=== PATIENT | female | born 1940 | race Caucasian/White ===

== ENCOUNTER 2017-03-22 13:35 | Emergency (ER) | payer MEDICARE, OTHER ==
[2017-03-22 12:51] LABS: BASOPHILS 0.3 %; BASOPHILS ABSOLUTE 0.02 10/3/uL (0.0-0.16); EOSINOPHILS 1.9 %; EOSINOPHILS ABSOLUTE 0.11 10/3/uL (0.0-0.53); HEMATOCRIT 34.7 % (36.0-48.0); IMMATURE GRANULOCYTES 0.2 %; IMMATURE GRANULOCYTES ABSOLUTE 0.01 10/3/uL (0.0-0.11); LYMPHOCYTES ABSOLUTE 1.42 10/3/uL (0.67-4.30); MANUAL DIFF NO %; MEAN CORPUS HGB CONC 34.6 g/dL (32.0-36.0); MEAN CORPUSCULAR HEMOGLOB 32.6 pg (26.0-34.0); MEAN CORPUSCULAR VOLUME 94.3 fL (80-100); MEAN PLATELET VOLUME 8.6 fL (9.2-13.0); MONOCYTES 11.7 %; MONOCYTES ABSOLUTE 0.69 10/3/uL (0.21-1.20); NEUTROPHILS 61.9 %; NEUTROPHILS ABSOLUTE 3.66 10/3/uL (2.02-8.40); PLATELET COUNT 219 10/3/uL (150-400); RBC DISTRIBUTION WIDTH 11.8 % (12.0-16.0); RED CELL COUNT 3.68 10/6/uL (4.0-5.6); WHITE BLOOD CELLS 5.9 10/3/uL (4.5-10.5)
[2017-03-22 12:58] LABS: INTERNATIONAL NORMAL RATI 1.2 UNITS (-); PARTIAL THROMBO TIME 29.4 SEC (22.5-37.2); PROTIME (NOT ORD) 14.8 SEC (12.0-14.5)
[2017-03-22 13:08] LABS: BUN (BLOOD UREA NITROGEN) 11 MG/DL (6-23); CALCIUM, SERUM 8.5 MG/DL (8.5-10.4); CHEST PAIN PROFILE TAT 0 Hrs 21 Mins; CHLORIDE, SERUM 102 MMOL/L (96-112); CO2 (CARBON DIOXIDE) 26 MMOL/L (24-34); CREATININE 0.99 MG/DL (0.55-1.02); GFR AFRICAN AMERICAN 64 ML/MIN (>=60); GFR NON AFRICAN AMERICAN 55 ML/MIN (>=60); GLUCOSE, SERUM 92 MG/DL (60-99); POTASSIUM, SERUM 4.2 MMOL/L (3.5-5.3); SODIUM, SERUM 136 MMOL/L (135-148); TROPONIN I <0.02 NG/ML (<0.05)
[2017-03-22 13:29] LABS: ASCORBIC ACID (UR NOT ORDER) NEG (NEG); BILIRUBIN, URINE NEGATIVE (NEG); KETONE, URINE NEGATIVE (NEG); LEUKOCYTE ESTERASE(NOT OR NEG (NEG); NITRITE (URINE) NEG (NEG); WBC (NOT ORDERED) (RFLEX) < 1 (0-5)
[~2017-03-22 13:35] MED LIST: ASAB PO; CALTRAT600 PO; DSS PO; EMERGEN-C PO; FERROUS SULF325 M1 PO; FISH-EPA1000 MG PO; LIPITOR40 PO; LOP25 PO; MEVACOR10 MG PO; NITROSTAT0.4 MG SL; PLAVIX PO; PROBIOTIC PO; TRAMADOL PO; VITAMIN D1000 UNI1 PO; VITC500 PO; VITE PO
[2017-04-12] MEDS ORDERED: ELIQUIS 5 MG TAB5 MG PO (15:30)
[2017-04-12] MEDS ORDERED: FIORINALC PO (15:36)
[2017-04-12] MEDS ORDERED: VOLTAREN1 % TOP (15:38)
[2017-04-12] MEDS ORDERED: L40 PO (15:38)
[2017-04-12] MEDS ORDERED: RED YEAS1 PO (15:39)
[2017-04-12] MEDS ORDERED: [UNRECOGNIZED DRUG - OTHER] PO (15:41)
[2017-04-12] MEDS ORDERED: VITAMIN B-121000 MC1 PO-DS (16:10)
[2017-04-12] MEDS ORDERED: ULTRAM50 PO (16:11)
[2017-04-12] MEDS ORDERED: MELATONIN5 M1 PO (16:11)
[2017-04-12] MEDS ORDERED: VITAMIN B PO (16:12)
[2017-04-12] MEDS ORDERED: FISH OIL1200 MG PO (16:14)
[2017-04-13] MEDS ORDERED: VITC500 PO (07:33)
[2017-04-13] MEDS ORDERED: LIOR10 PO (07:39)
[2017-04-13] MEDS ORDERED: ATARAX50B PO (07:39)
== END 2017-03-22 14:36 | disposition home or self-care (01) ==
LOC: ER 13:35
PROVIDERS: Hospitalist
DX: I95.1 Orthostatic hypotension (principal); I95.89 Other hypotension; E78.5 Hyperlipidemia, unspecified; I25.10 Atherosclerotic heart disease of native coronary artery without angina pectoris; D64.9 Anemia, unspecified; Z95.5 Presence of coronary angioplasty implant and graft; Z79.82 Long term (current) use of aspirin; Z79.899 Other long term (current) drug therapy; Z98.51 Tubal ligation status; Z90.710 Acquired absence of both cervix and uterus
CPT/HCPCS: 71010; 80048; 81001; 83735; 84484; 85025; 85610; 85730; 93005; 99285; A9270-GY